=== PATIENT | male | born 1985 | race Caucasian/White ===

== ENCOUNTER → 2018-08-06 18:09 | Emergency (ER) | payer OTHER ==
[~2018-08-06 18:09] MED LIST: Ketorolac INJ* 30 MG/ML 1 ML VIAL IM ONE; Morphine 4 MG/ML VIAL (1 ml) 4 MG/ML VIAL IV ONE; NS 0.9% 1000 ML** 2,000 ML IV ONE; Ondansetron INJ* 2 MG/ML VIAL IV ONE; Ondansetron ODT TAB* 4 MG PO ONE; Tamsulosin CAP* 0.4 MG PO ONE; oxyCODONE/Acetamin 5/325 MG* TAB PO ONE
--- NOTE | 2018-08-06 18:54 | ED ---
Back Pain - HPI Summary HPI Summary: Pt is a 33 y/o M presenting to the ED with a chief complaint of sudden onset L- sided back pain first onset at 0400 this date, 08/06/18. He states the pain itself is continuous but the severity waxes and wanes, and is presently a 9/10. He denies hematuria or scrotal pain. Per triage note, pt also has had chills, diaphoresis, nausea, and vomiting today. - History of Current Complaint Chief Complaint: EDFlankPain Stated Complaint: BACK PAIN/NAUSEA/VOMITING PER PT Time Seen by Provider: 08/06/18 18:44 Hx Obtained From: Patient Onset/Duration: Sudden Onset, Lasting Hours, Still Present Onset/Duration: Started Hours Ago, Still Present Timing: Constant, Lasting Hours Back Pain Location: Is Discrete @ - L lower back Severity Initially: Moderate Severity Currently: Severe Pain Intensity: 9 Pain Scale Used: 0-10 Numeric Aggravating Symptom(s): Nothing Alleviating Symptom(s): Nothing - Allergies/Home Medications Allergies/Adverse Reactions: Allergies Allergy/AdvReac Type Severity Reaction Status Date / Time No Known Allergies Allergy Verified 08/06/18 18:12 PMH/Surg Hx/FS Hx/Imm Hx Previously Healthy: Yes Endocrine/Hematology History: Denies: Hx Diabetes Cardiovascular History: Denies: Hx Hypertension History: Reports: Hx Kidney Stones Musculoskeletal History: Denies: Hx Rheumatoid Arthritis, Hx Osteoporosis Infectious Disease History: No Infectious Disease History: Denies: Traveled Outside the [place] in Last 30 Days - Family History Known Family History: Negative: Respiratory Disease - Social History Alcohol Use: None Hx Substance Use: No Substance Use Type: Reports: None Hx Tobacco Use: No Smoking Status (MU): Never Smoked Tobacco Review of Systems Positive: Chills, Skin Diaphoresis Positive: Vomiting, Nausea Positive: Myalgia - back pain All Other Systems Reviewed And Are Negative: Yes Physical Exam - Summary Physical Exam Summary: Appearance: Well appearing, no pain distress Skin: warm, dry, reflects adequate perfusion Head/face: normal Eyes: EOMI, FRANKO ENT: normal Neck: supple, non-tender Respiratory: CTA, breath sounds present Cardiovascular: RRR, pulses symmetrical Abdomen: tender in the L flank Musculoskeletal: normal, strength/ROM intact Neuro: normal, sensory motor intact, A&Ox3 Triage Information Reviewed: Yes Vital Signs On Initial Exam: Initial Vitals Temp Pulse Resp BP Pulse Ox 99.3 F 68 15 141/84 98 08/06/18 18:10 08/06/18 18:10 08/06/18 18:10 08/06/18 18:10 08/06/18 18:10 Vital Signs Reviewed: Yes Diagnostics - Vital Signs Vital Signs Temp Pulse Resp BP Pulse Ox 08/06/18 18:10 99.3 F 68 15 141/84 98 - Laboratory Result Diagrams: 08/06/18 19:29 08/06/18 19:29 Lab Statement: Any lab studies that have been ordered have been reviewed, and results considered in the medical decision making process. - CT CT abd/pelv CT Interpretation Completed By: Radiologist Summary of CT Findings: Small left distal ureteral stone with associated dilatation of the ureter and renal pelvis. ED physician has reviewed this report. Back Pain Course/Dx - Course Course Of Treatment: Pt is a 33 y/o M presenting to the ED with a chief complaint of sudden onset L-sided back pain first onset at 0400 this date, . He denies hematuria or scrotal pain. Per triage note, pt also has had chills , diaphoresis, nausea, and vomiting today. CT abd/pelv shows: Small left distal ureteral stone with associated dilatation of the ureter and renal pelvis. Pt will be d/c'ed with a dx of ureteral stone and instructions to follow up with urology as soon as possible. He is stable and agreeable with this plan. - Diagnoses Differential Diagnosis/HQI/PQRI: Positive: Renal Colic, Strain Provider Diagnoses: Ureteral stone Discharge - Sign-Out/Discharge Documenting (check all that apply): Patient Departure Patient Received Moderate/Deep Sedation with Procedure: No - Discharge Plan Condition: Stable Disposition: HOME Prescriptions: Oxycodone HCl/Acetaminophen [Percocet] 1 tab PO TID #15 tab MDD 3 Tamsulosin HCl [Flomax] 0.4 mg PO ONCE #15 cap.er.24h Referrals: [facility] [Outside] Jameel Freed MD [Medical Doctor] - Additional Instructions: Please follow up with Dr. Freed of Urology over the next 2-3 days. Return to the emergency department with any new or worsening symptoms. - Billing Disposition and Condition Condition: STABLE Disposition: Home - Attestation Statements Document Initiated by Scribe: Yes Documenting Scribe: Isa Klein Provider For Whom Scribe is Documenting (Include Credential): Brian Rocha MD. Scribe Attestation: Isa Bonilla, scribed for Brian Rocha MD. on 08/06/18 at 2139. Scribe Documentation Reviewed: Yes Provider Attestation: The documentation as recorded by the lillyibe, Isa Klein accurately reflects the service I personally performed and the decisions made by Brian mcqueen MD. Status of Scribe Document: Viewed
[2018-08-06 19:38] LABS: ABS Monocytes 0.9 10^3/ul (0-0.8); ABS Neutrophils 9.4 10^3/ul (1.5-7.7); Eosinophil % 0.1 %; Hematocrit 43 % (42-52); Hemoglobin 14.3 g/dL (14.0-18.0); Mean Corpuscular HGB Conc 34 g/dL (31-36); Mean Corpuscular Hemoglobin 31 pg (27-31); Mean Corpuscular Volume 91 fL (80-94); Mean Platelet Volume 8.6 fL (7.4-10.4); Platelet Count 174 10^3/uL (150-450); Red Cell Distribution Width 13 % (10.5-15); White Blood Count 11.3 10^3/uL (3.5-10.8)
[2018-08-06 19:53] LABS: Albumin 4.1 g/dL (3.2-5.2); BUN/Creatinine Ratio 11.3 (8-20); Calcium 9.3 mg/dL (8.6-10.3); EGFR African American 69.6 (>60); EGFR Non-African American 57.5 (>60); Globulin 2.1 g/dL (2-4); INR 1.1 (0.82-1.09); Potassium 4.2 mmol/L (3.5-5.0); Total Protein 6.2 g/dL (6.4-8.9)
[2018-08-06 21:05] LABS: Urine Appearance Clear; Urine Bilirubin Negative (Negative); Urine Blood Negative (Negative); Urine Color Yellow; Urine Glucose Negative (Negative); Urine Ketones 1+ (Negative); Urine Nitrite Negative (Negative); Urine Protein Negative (Negative); Urine Specific Gravity 1.026 (1.010-1.030); Urine Urobilinogen Negative (Negative)
[2018-08-06 21:54] VITALS: BP 117/74
== END | disposition home or self-care (01) ==
LOC: ED 18:09
DX: N20.1 Calculus of ureter (principal); Z87.442 Personal history of urinary calculi; R11.2 Nausea with vomiting, unspecified
CPT/HCPCS: 36415; 74176; 80053; 81003; 83690; 85025; 85610; 85730; 96361; 96372; 96374; 96375; 99283; A9270-GY; J1885; J2270; J2405